=== PATIENT | female | born 1965 | race Caucasian/White ===

== ENCOUNTER 2019-06-01 18:06 | Emergency (ER) | payer OTHER ==
[2019-06-01] MEDS: LIDOCAINE 4% CR TOP (20:12)
[2019-06-01] MEDS: LIDOCAINE 1% (MPF) 5 ML VIAL INFIL (20:12)
== END 2019-06-01 20:17 | disposition home or self-care (01) ==
LOC: FTE 18:06
DX: L02.211 Cutaneous abscess of abdominal wall (principal); E11.9 Type 2 diabetes mellitus without complications
CPT/HCPCS: 10060; 99283-25